=== PATIENT | female | born 1995 | race African-American/Black ===

== ENCOUNTER 2022-02-02 17:20 | Inpatient (IN) | payer SELFPAY ==
[~2022-02-02 17:20] MED LIST: Ropivacaine 0.2% PF 2 MG/ML 20 ML SDV ONE
[2022-02-02] MEDS ORDERED: Nalbuphine HCl 10 MG/ 1ML Amp IVPUSH PRN (18:20)
[2022-02-02] MEDS ORDERED: Ondansetron 4 MG/2 ML SDV IVPUSH PRN (18:20)
[2022-02-02] MEDS ORDERED: Sodium Chloride 0.9% 10 ML Syringe FLUSH PRN (18:20)
[2022-02-02] MEDS ORDERED: Calcium Carbonate 500 MG Tab.Chew PO PRN (18:20)
[2022-02-02] MEDS ORDERED: Oxytocin/Lactated Ringers 10 UNIT/1,000 ML BAG IV SCH ×2 (18:30)
[2022-02-02] MEDS ORDERED: Lactated Ringers 1,000 ML IV SCH (18:30)
[2022-02-02] MEDS ORDERED: Bupivacaine/fentaNYL/NS 100 ML Bag EPIDUR PRN (20:13)
[2022-02-02] MEDS ORDERED: diphenhydrAMINE 50 MG/ML SDV IVPUSH PRN (20:13)
[2022-02-02] MEDS ORDERED: fentaNYL 100 MCG/2 ML SDV EPIDUR PRN (20:13)
[2022-02-02] MEDS ORDERED: ePHEDrine 50 MG/ML SDV IVPUSH PRN (20:13)
[2022-02-02] MEDS ORDERED: Hydrocortisone 1% Crm 30 GM Tube TOP PRN (23:17)
[2022-02-02] MEDS ORDERED: Witch Hazel Medicated Pads 40/Jar TOP PRN (23:17)
[2022-02-02] MEDS ORDERED: Acetaminophen 325 MG Tab PO PRN (23:17)
[2022-02-02] MEDS ORDERED: Benzocaine/Menthol 20%-0.5% Spray 78 GM Cannister TOP PRN (23:17)
[2022-02-03] MEDS: Docusate Sodium 100 MG Cap PO PRN (00:23)
[2022-02-03] MEDS: Ibuprofen 600 MG Tab PO PRN ×3 (06:21→19:28)
[2022-02-03] MEDS: Prenatal Multivitamin with Calcium/Folic Acid/Iron Tab PO SCH (09:20)
[2022-02-04] MEDS: Prenatal Multivitamin with Calcium/Folic Acid/Iron Tab PO SCH (08:44)
[2022-02-04] MEDS: Docusate Sodium 100 MG Cap PO PRN (08:44)
[2022-02-04] MEDS: Ibuprofen 600 MG Tab PO PRN (08:44)
== END 2022-02-04 16:50 | disposition home or self-care (01) | DRG 807 ==
LOC: JD.OBCHECK 17:20 → JD.OB 17:21 → JD.OBCHECK 18:19 → JD.OB 18:20 → OBSVTOIN 22:44 → JD.OB 22:45
PROVIDERS: ADMIT Obstetrics & Gynecology; ATTEND Obstetrics & Gynecology
PROC: 10E0XZZ Delivery of Products of Conception, External Approach (ICD-10-PCS; principal; 2022-02-02)
PROC: 10907ZC Drainage of Amniotic Fluid, Therapeutic from Products of Conception, Via Natural or Artificial Opening (ICD-10-PCS; 2022-02-02)
DX: O80 Encounter for full-term uncomplicated delivery (principal); Z37.0 Single live birth; Z3A.40 40 weeks gestation of pregnancy
CPT/HCPCS: 36415; 59025; 59409; 85025; 86592; 86850; 86900; 86901; A9270-GY; J2590; J2795; J7120

== ENCOUNTER 2025-02-11 13:02 | Emergency (ER) | payer SELFPAY ==
[2025-02-11] MEDS ORDERED: Sodium Chloride 0.9% 10 ML Syringe FLUSH PRN (13:58)
[2025-02-11 14:16] LABS: BASOPHILS ABSOLUTE AUTO 0.0 K/mm3 (0.0-0.2); BASOPHILS PERCENT AUTO 0.4 % (0.0-1.0); EOSINOPHILS ABSOLUTE AUTO 0.1 K/mm3 (0.0-0.4); EOSINOPHILS PERCENT AUTO 0.9 % (0.0-6.0); IMMATURE GRAN ABSOLUTE AUTO 0.01 K/mm3 (0.00-0.05); IMMATURE GRAN PERCENT AUTO 0.1 % (0.0-0.4); LYMPHOCYTES ABSOLUTE AUTO 1.9 K/mm3 (1.0-4.8); LYMPHOCYTES PERCENT AUTO 25.8 % (24.0-44.0); MEAN PLATELET VOLUME 11.1 fl (9.4-12.3); MONOCYTES ABSOLUTE AUTO 0.5 K/mm3 (0.0-0.8); MONOCYTES PERCENT AUTO 6.0 % (0.0-8.0); NEUTROPHILS ABSOLUTE AUTO 5.0 K/mm3 (1.8-7.7); NEUTROPHILS PERCENT AUTO 66.8 % (41.0-71.0); NRBC ABSOLUTE 0.00 (0.00-0.02); NRBC PERCENT 0.0 % (0.0-0.2); PLATELET COUNT,PLT 167 K/mm3 (150-400); RED BLOOD CELL COUNT 4.49 M/mm3 (4.10-5.30); WHITE BLOOD CELL COUNT,WBC 7.51 K/mm3 (3.9-11.3)
[2025-02-11] MEDS: Ketorolac 30 MG/ML SDV IVPUSH ONE (14:24)
[2025-02-11] MEDS: Lidocaine/Epineph/Tetracaine 3 ML Syringe TOP ONE (14:24)
[2025-02-11 14:42] LABS: A/G RATIO 1.0 (1-2); ALANINE AMINOTRANSFERASE,ALT 33.0 U/L (14-59); ASPARTATE AMNIOTRANSFERASE,AST 19.0 U/L (15-37); BILIRUBIN TOTAL 0.7 mg/dL (0.2-1.0); BLOOD UREA NITROGEN,BUN 18.0 mg/dL (7-18); CARBON DIOXIDE,CO2 27.0 mEq/L (21-32); CHLORIDE,CL 103.0 mEq/L (98-107); CREATININE 0.8 mg/dL (0.55-1.02); EST CRCL DRUG DOSING (CG) 84.29 mL/min; ESTIMATED GFR 101.0 mL/min (>60); GLUCOSE RANDOM 96.0 mg/dL (70-99); POTASSIUM,K 4.0 mEq/L (3.5-5.1); PROTEIN TOTAL,TP 7.4 g/dl (6.4-8.2); SODIUM,NA 137.0 mEq/L (136-145)
[2025-02-11] MEDS: Diphtheria,Pertussis(Acell),Tetanus Vaccine 0.5 ML Syringe IM ONE (15:54)
== END 2025-02-11 16:00 | disposition home or self-care (01) ==
LOC: JD.ED 13:02
DX: L03.116 Cellulitis of left lower limb (principal); Z23 Encounter for immunization
CPT/HCPCS: 10060; 36415; 80053; 85025; 86140; 90471; 90715; 96374; 96375; 99283; A9270; J0696; J1885